=== PATIENT | female | born 1960 | race Caucasian/White ===

== ENCOUNTER 2022-05-29 07:43 | Day surgery (SDC) | payer OTHER ==
[~2022-05-29] VITALS: Ht 162.6 cm; Wt 66.0 kg
[~2022-05-29 07:43] MED LIST: MULTIVITAMIN200 MCG PO; ZITHROMAX250 MG PO
--- NOTE | 2022-05-29 09:57 | NUR ---
05/29/22 0957 Doris Garcia 0944 PATIENT INTO PACU. REPORT RECIEVED FROM WENDY VIEIRA. PATIENT OXYGEN AT 3 LITERS VIA NASAL CANNULA. OXYGEN SATURATIONS MAINTAING ABOVE 95%. PATIENT IS DROWSY BUT DENIES ANY PAIN OR NAUSEA. IVF INFUSING. IV SITE PATENT. PATIENT HEAD OF BED FLAT. 0950 OXYGEN TITRATED DOWN TO ROOM AIR. BREATHING EQUAL AND UNLABORED. OXYGEN SATRUATIONS ABOVE 95%. PATIENT IS AWAKE AND ORIENTED. DENIES ANY PAIN OR NAUSEA. IVF INFUSING.
--- NOTE | 2022-06-03 08:46 | OR ---
[facility] [address], [place] [address] Signed DATE OF OPERATION: 05/29/2022 SURGEON: Moo Napoles MD PREOPERATIVE DIAGNOSES: 1. Father with colon cancer at age 63. 2. Minimal internal and external hemorrhoids. POSTOPERATIVE DIAGNOSIS: 1. Minimal internal and external hemorrhoids. PROCEDURE: Colonoscopy without biopsy. ESTIMATED BLOOD LOSS: None. INDICATIONS: Theresa is a 62-year-old female, who was asked to see me for followup colonoscopy. I helped her with her initial colonoscopy at age 47 back in 2007. She had minimal internal and external hemorrhoids at that time. She had done well with Versed and fentanyl. We had asked her to follow up every five years. She currently has no lower GI complaints. We know her father was diagnosed and of colon cancer at age 63. Theresa herself remains quite healthy. I gave her a pamphlet in the office on colonoscopy. She understands the nature of the test. There is risk including, but not limited to gas bloating, crampy abdominal pain, bleeding, perforation requiring surgery, and missed diagnosis. We also discussed the need for IV conscious sedation. She had expressed understanding and wished to proceed. PROCEDURE IN DETAIL: Theresa was taken into our endoscopy suite and placed in the left lateral decubitus position. She was given IV sedation with 8 mg of Versed and 100 mcg of fentanyl to cover the case. A digital rectal exam was performed and she does have small external circumferential hemorrhoids. She has good sphincter tone. No masses. The adult colonoscope was introduced and advanced all around into the cecum under direct visualization of the camera. It took extra sedation and abdominal compression in order to advance the scope. 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 We did biopsy that today. Her prep was quite excellent. We could easily see the appendiceal orifice and ileocecal valve. The scope was then slowly withdrawn. We took pictures throughout for photodocumentation. We saw no pathology in the colon except for maybe mild melanosis Electronically Signed By: MOO NAPOLES MD 05/29/22 1125 Electronically Signed By: MOO NAPOLES MD 06/03/22 1633 PATIENT NAME: THERESA BARNARD OPERATIVE REPORT DATE OF : 60 REPORT #: [id number] PHYSICIAN: MOO NAPOLES MD PCP: FERNANDEZ VILLALOBOS PA-C REPORT IS CONFIDENTIAL AND NOT TO BE RELEASED WITHOUT AUTHORIZATION [facility] [address], [place] [address] Signed coli. There was no diverticulosis and no polyps. The rectum was unremarkable. Upon retroflexion of the scope, she has very minimal internal hemorrhoid tissue. After this, the gas was suctioned out and colonoscope removed. Theresa tolerated the procedure quite well. RECOMMENDATIONS: Theresa can return in 5 years for repeat colonoscopy given her family history of colon cancer. Moo Napoles MD ALB/MODL /[id number] cc: MD Fernandez Roque PA-C Copies: MOO NAPOLES MD ~ Electronically Signed By: MOO NAPOLES MD 05/29/22 1125 Electronically Signed By: MOO NAPOLES MD 06/03/22 1633 PATIENT NAME: THERESA BARNARD OPERATIVE REPORT DATE OF : 60 REPORT #: [id number] PHYSICIAN: MOO NAPOLES MD PCP: FERNANDEZ VILLALOBOS PA-C REPORT IS CONFIDENTIAL AND NOT TO BE RELEASED WITHOUT AUTHORIZATION
== END 2022-05-29 10:25 | disposition home or self-care (01) ==
LOC: DS → OPS 07:43 → DS 07:43 → OPS 09:00
PROVIDERS: ATTEND Colon & Rectal Surgery
PROC: 0DJD8ZZ Inspection of Lower Intestinal Tract, Via Natural or Artificial Opening Endoscopic (ICD-10-PCS; principal; 2022-05-29 09:00)
DX: Z12.11 Encounter for screening for malignant neoplasm of colon (principal); Z80.0 Family history of malignant neoplasm of digestive organs; K64.8 Other hemorrhoids; K64.4 Residual hemorrhoidal skin tags; K64.0 First degree hemorrhoids; E78.5 Hyperlipidemia, unspecified
CPT/HCPCS: 99153; G0500; J2250; J3010